=== PATIENT | female | born 1950 | race Caucasian/White ===

== ENCOUNTER 2016-06-05 17:17 | Emergency (ER) | payer MEDICARE, BC ==
[2016-06-05 17:28] VITALS: BP 158/92
[2016-06-05] MEDS ORDERED: LORazepam 2 MG/ML MDV IVPUSH ONE ×2 (17:59→19:14)
[2016-06-05] MEDS ORDERED: Sodium Chloride 0.9% 10 ML Syringe FLUSH PRN (17:59)
[2016-06-05] MEDS ORDERED: Ondansetron 4 MG/2 ML SDV IVPUSH ONE (17:59)
[2016-06-05] MEDS ORDERED: Sodium Chloride 0.9% 1,000 ML IV ONE (18:00)
--- NOTE | 2016-06-05 18:03 | EDM.PDOC ---
ED HPI GENERAL MEDICAL PROBLEM - General Chief Complaint: Gastrointestinal Problem Stated Complaint: PUKING, DIARRHEA Time Seen by Provider: 06/05/16 17:49 Source of Information: Reports: Patient History Limitations: Reports: No limitations - History of Present Illness INITIAL COMMENTS - FREE TEXT/NARRATIVE: Patient is a 65-year-old female presents to the ED complaining of flulike symptoms since Friday night. Patient states she awoke with vomiting and diarrhea. States the vomiting has subsided. She remains nauseated. She can't eat/drink or keep her pills down. She has not taken her medications since onset. States she's had multiple episodes of diarrhea throughout the course of the day. Denies any abdominal pain associated with this. Nor is any blood present. She is chilled with no documented fever or body aches. She denies any chest pain, shortness breath, dysuria, recent antibiotic use, questionable fluid, or out of country travel. Of note she does feel lightheaded and dizzy with ambulation. States she has not had other oral and take of fluids. Patient appears to be quite anxious. She has a history of anxiety and depression as well panic attacks. This was brought on by the of her approximately one year ago. Additional history includes acid reflux, asthma, hypertension - Related Data Allergies Allergy/AdvReac Type Severity Reaction Status Date / Time latex Allergy Itching Verified 02/14/14 09:14 Penicillins Allergy Paralysis Verified 02/14/14 09:14 Home Meds: Home Meds ALPRAZolam [Alprazolam] 0.25 mg PO DAILY PRN 06/05/16 [History] Diltiazem [Cardizem] 120 mg PO Q12HR 06/05/16 [History] Fexofenadine/Pseudoephedrine [Nancy-D 24 Hour Tablet] 1 tab PO DAILY 06/05/16 [History] Fluticasone/Salmeterol [Advair Hfa 230-21 Mcg Inhaler] 2 puff IH BID 06/05/16 [ History] Montelukast [Singulair] 10 mg PO BEDTIME 06/05/16 [History] Naproxen Sodium [Aleve] 220 mg PO DAILY 06/05/16 [History] Nitrofurantoin Monohyd/M-Cryst [Macrobid 100 mg Capsule] 100 mg PO BID #10 capsule 06/05/16 [Rx] Pantoprazole [ProTONIX] 40 mg PO ACBREAKFAST 06/05/16 [History] QUEtiapine [SEROquel] 25 mg PO BID #14 tablet 06/05/16 [Rx] Sertraline [Zoloft] 50 mg PO ASDIRECTED 06/05/16 [History] Tiotropium [Spiriva HandiHaler] 18 mcg INH DAILY 06/05/16 [History] traZODone HCl [Trazodone HCl] 150 mg PO DAILY 06/05/16 [History] Past Medical History Cardiovascular History: Reports: Arrhythmia Respiratory History: Reports: Asthma [employer]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: Musculoskeletal History: Reports: Back pain, chronic Psychiatric History: Reports: Anxiety, Depression Hematologic History: Reports: Blood transfusion(s) - Past Surgical History GI Surgical History: Reports: Colonoscopy Musculoskeletal Surgical History: Reports: Hip replacement Social & Family History - Family History Family Medical History: Noncontributory - Tobacco Use Smoking Status *Q: Never Smoker - Caffeine Use Caffeine Use: Reports: Coffee - Recreational Drug Use Recreational Drug Use: No ED ROS GENERAL - Review of Systems Review Of Systems: See Below Constitutional: Reports: malaise, decreased appetite. Denies: fever, chills HEENT: Reports: No symptoms Respiratory: Reports: No Symptoms Cardiovascular: Reports: No symptoms GI/Abdominal: Reports: Diarrhea, Decreased appetite, Vomiting. Denies: Abdominal pain, Black stool, Bloody stool, Constipation, Distension, Flatus, Hematemesis, Nausea : Denies: dysuria Musculoskeletal: Reports: no symptoms Neurological: Reports: Dizziness, Weakness Psychiatric: Reports: Anxiety ED EXAM, GENERAL - Physical Exam Exam: See Below Exam Limited By: No limitations General Appearance: alert, WD/WN, no apparent distress, anxious Eye Exam: bilateral eye: PERRL Ears: hearing grossly normal Nose: normal inspection Throat/Mouth: Normal inspection, Normal oropharynx, Normal voice, No airway compromise Neck: normal inspection, supple, non-tender, full range of motion. No: lymphadenopathy (L), lymphadenopathy (R) Respiratory/Chest: no respiratory distress, lungs clear, normal breath sounds Cardiovascular: normal peripheral pulses, regular rate, rhythm, no murmur Peripheral Pulses: 2+: radial (R) GI/Abdominal: normal bowel sounds, soft, non tender, no organomegaly, no distention Back Exam: normal inspection. No: CVA tenderness (L), CVA tenderness (R) Neurological: alert, oriented, CN II-XII intact, normal cognition, no motor/ sensory deficits Psychiatric: normal affect, normal mood Skin Exam: Warm, Dry, Intact, Normal color, No rash Course - Vital Signs Last Recorded V/S: Last Vital Signs Temp 97.2 F 06/05/16 17:23 Pulse 76 06/05/16 17:23 Resp 16 06/05/16 17:23 BP 158/92 H 06/05/16 17:23 Pulse Ox 98 06/05/16 17:23 Orthostatic Blood Pressure [ 131/90 stand] Orthostatic Blood Pressure [ 145/84 Sitting] Orthostatic Blood Pressure [ 134/80 Supine] - Orders/Labs/Meds Orders: Active Orders 24 hr Category Date Time Status Orthostatic Vital Signs [RC] ASDIRECTED Care 06/05/16 18:00 Active Peripheral IV Care [RC] . DIRECTED Care 06/05/16 17:59 Active CULTURE URINE [RM] Stat Lab 06/05/16 21:14 Ordered Nitrofurantoin [place]/Macrocryst [Macrobid] Med 06/05/16 21:14 Once 100 mg PO ONETIME ONE Sodium Chloride 0.9% [Saline Flush] Med 06/05/16 17:59 Active 10 ml FLUSH ASDIRECTED PRN Peripheral IV Insertion Adult [OM.PC] Stat Oth 06/05/16 17:59 Ordered Medication Orders Nitrofurantoin Macrocrystals (Macrobid) 100 mg PO ONETIME ONE Stop: 06/05/16 21:15 Sodium Chloride (Saline Flush) 10 ml FLUSH ASDIRECTED PRN PRN Reason: Keep Vein Open Last Admin: 06/05/16 18:19 Dose: 10 ml Labs: Laboratory Tests 06/05/16 06/05/16 06/05/16 Range/Units 17:50 17:50 20:30 WBC 15.30 H (3.98-10.04) K/mm3 RBC 5.08 (3.98-5.22) M/mm3 Hgb 15.0 (11.2-15.7) gm/L Hct 44.2 (34.1-44.9) % MCV 87.0 (79.4-94.8) fl MCH 29.5 (25.6-32.2) pg MCHC 33.9 (32.2-35.5) g/dl RDW Std Deviation 41.4 (36.4-46.3) fL Plt Count 372 H (182-369) K/mm3 MPV 9.6 (9.4-12.3) fl Neut % (Auto) 82.1 H (34.0-71.1) % Lymph % (Auto) 10.3 L (19.3-51.7) % [place] % (Auto) 7.1 (4.7-12.5) % Eos % (Auto) 0.1 L (0.7-5.8) Baso % (Auto) 0.1 (0.1-1.2) % Neut # (Auto) 12.58 H (1.56-6.13) K/mm3 Lymph # (Auto) 1.57 (1.18-3.74) K/mm3 [place] # (Auto) 1.08 H (0.24-0.36) K/mm3 Eos # (Auto) 0.01 L (0.04-0.36) K/mm3 Baso # (Auto) 0.01 (0.01-0.08) K/mm3 Sodium 133 L (136-145) mEq/L Potassium 4.0 (3.5-5.1) mEq/L Chloride 94 L (98-107) mEq/L Carbon Dioxide 17 L (21-32) mEq/L Anion Gap 26.0 H (5-15) BUN 14 (7-18) mg/dL Creatinine 0.9 (0.55-1.02) mg/dL Est Cr Clr Drug Dosing 55.25 mL/min Estimated GFR (MDRD) > 60 (>60) mL/min BUN/Creatinine Ratio 15.6 (14-18) Glucose 90 (80-115) mg/dL Calcium 8.6 (8.5-10.1) mg/dL Total Bilirubin 1.0 (0.2-1.0) mg/dL AST 24 (15-37) U/L ALT 23 (14-59) U/L Alkaline Phosphatase 101 (46-116) U/L C-Reactive Protein < 0.2 (<1.0) mg/dL Total Protein 7.4 (6.4-8.2) g/dl Albumin 4.2 (3.4-5.0) g/dl Globulin 3.2 gm/dL Albumin/Globulin Ratio 1.3 (1-2) TSH 3rd Generation 1.981 (0.358-3.74) uIU/mL Urine Color Yellow (Yellow) Urine Appearance Slt cloudy H (Clear) Urine pH 5.0 (5.0-8.0) Ur Specific [place] <=1.005 (1.005-1.030) Urine Protein Negative (Negative) Urine Glucose (UA) Negative (Negative) Urine Ketones 3+ H (Negative) Urine Occult Blood 1+ H (Negative) Urine Nitrite Negative (Negative) Urine Bilirubin Negative (Negative) Urine Urobilinogen 0.2 (0.2-1.0) Ur Leukocyte Esterase 3+ H (Negative) Urine RBC 5-10 H (0-5) /hpf Urine WBC 50-75 H (0-5) /hpf Urine WBC Clumps Few (NOT SEEN) /hpf Ur Epithelial Cells Not Reportable Ur Squamous Epith Cells 20-30 H (0-5) /hpf Urine Bacteria Few (FEW) /hpf Urine Mucus Not seen (FEW) /hpf Meds: Medications Generic Name Dose Route Start Last Admin Trade Name Freq PRN Reason Stop Dose Admin Nitrofurantoin Macrocrystals 100 mg 06/05/16 21:14 Macrobid PO 06/05/16 21:15 ONETIME ONE Sodium Chloride 10 ml 06/05/16 17:59 06/05/16 18:19 Saline Flush FLUSH 10 ml ASDIRECTED PRN Administration Keep Vein Open Discontinued Medications Generic Name Dose Route Start Last Admin Trade Name Freq PRN Reason Stop Dose Admin Sodium Chloride 1,000 mls @ 999 mls/hr 06/05/16 18:00 06/05/16 18:17 Normal Saline IV 06/05/16 19:00 999 mls/hr ONETIME ONE Administration Lorazepam 1 mg 06/05/16 17:59 06/05/16 18:18 Ativan IVPUSH 06/05/16 18:00 1 mg ONETIME ONE Administration Lorazepam 1 mg 06/05/16 19:14 06/05/16 19:31 Ativan IVPUSH 06/05/16 19:15 1 mg ONETIME ONE Administration Ondansetron HCl 4 mg 06/05/16 17:59 06/05/16 18:18 Zofran IVPUSH 06/05/16 18:00 4 mg ONETIME ONE Administration Quetiapine Fumarate 25 mg 06/05/16 21:11 Seroquel PO 06/05/16 21:12 ONETIME ONE - Re-Assessments/Exams Free Text/Narrative Re-Assessment/Exam: Ordered peripheral IV with NS 999 mls/hr, zofran 4mg IVP, ativan 1mg IVP. Ordered CBC, C14, CRP, UA with micro. Orthostatic vitals will be obtained. 06/05/16 18:01 Labs reviewed: Pupils count 15.30, platelets 372, neutrophil percentage 82, neutrophil #12.5, sodium 133, potassium 4.0, CO2 17, AG 26. Patient appears to be anxious although it has improved since receiving the ativan 1mg prior.Ordered additional 1 mg ativan. She has been up to the bathroom with no dizziness. Patient states she feels much better. Patient states she's been under a lot more stress recently. States one year ago her . Since then has been some financial concerns. 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 So this is just overwhelming for her. States she is on Lexapro prior to Zoloft with better control of anxiety symptoms. States she is thirsty. Will get some water and see how she tolerates this. In addition patient had one bowel movement with admission to the ED. She's had no further while here. Patient states some of her symptoms are more associated with anxiety than infectious. 06/05/16 20:18 Awaiting for UA results. 06/05/16 21:14 UA positive for infection possible contamination. Urine culture obtained. Ordered Macrobid 100 mg by mouth. In addition ordered seroquel 25 mg by mouth for anxiety. Will discharge patient with instructions as documented. Departure - Departure Time of Disposition: 21:15 Disposition: Home, Self-Care 01 Condition: good Clinical Impression: Anxiety Diarrhea Qualifiers: Diarrhea type: unspecified type Qualified Code(s): R19.7 - Diarrhea, unspecified UTI (urinary tract infection) Qualifiers: Urinary tract infection type: site unspecified Hematuria presence: with hematuria Qualified Code(s): N39.0 - Urinary tract infection, site not specified ; R31.9 - Hematuria, unspecified Prescriptions: Nitrofurantoin Monohyd/M-Cryst [Macrobid 100 mg Capsule] 100 mg PO BID #10 capsule QUEtiapine [SEROquel] 25 mg PO BID #14 tablet Instructions: Dehydration, Adult, [id number], Diarrhea, Adult, [id number] Referrals: Sandi Pineda, [employer] TECHNICIAN [Primary Care Provider] - Khari Grider MD [Physician] - Meghann Pressley NP [Nurse Practitioner] - Forms: ED Department Discharge Additional Instructions: Take the macrobid as prescribed for UTI. In addition I believe diarrhea is stressed induced. Thus will start you on seroquel 25mg twice a day. Continue taking all your home medications as prescribed. Will have you followup with PCP in the next 5 days to ensure resolution of UTI and reevaluate depression/ anxiety medications. In addition call and make an appointment with Kassy Pressley for further psychiatric evaluation. Continue to eat three well portioned meals with adequate water intake. Return to the E.D. for any new or worsening symptoms. - My Orders Last 24 Hours: My Active Orders 06/05/16 17:59 Peripheral IV Care [RC] . DIRECTED Sodium Chloride 0.9% [Saline Flush] 10 ml FLUSH ASDIRECTED PRN Peripheral IV Insertion Adult [OM.PC] Stat 06/05/16 18:00 Orthostatic Vital Signs [RC] ASDIRECTED 06/05/16 21:14 CULTURE URINE [RM] Stat Nitrofurantoin [place]/Macrocryst [Macrobid] 100 mg PO ONETIME ONE - Assessment/Plan Last 24 Hours: My Active Orders 06/05/16 17:59 Peripheral IV Care [RC] . DIRECTED Sodium Chloride 0.9% [Saline Flush] 10 ml FLUSH ASDIRECTED PRN Peripheral IV Insertion Adult [OM.PC] Stat 06/05/16 18:00 Orthostatic Vital Signs [RC] ASDIRECTED 06/05/16 21:14 CULTURE URINE [RM] Stat Nitrofurantoin [place]/Macrocryst [Macrobid] 100 mg PO ONETIME ONE
[2016-06-05] MEDS ORDERED: QUEtiapine 25 MG Tab PO ONE (21:11)
[2016-06-05] MEDS ORDERED: Nitrofurantoin Monohydrate/Macrocrystalline 100 MG Cap PO ONE (21:14)
== END 2016-06-05 21:24 | disposition home or self-care (01) ==
LOC: JD.ED 17:17
DX: R19.7 Diarrhea, unspecified (principal); N39.0 Urinary tract infection, site not specified; F41.9 Anxiety disorder, unspecified; J45.909 Unspecified asthma, uncomplicated; F32.9 Major depressive disorder, single episode, unspecified; G89.29 Other chronic pain; M54.9 Dorsalgia, unspecified; Z96.649 Presence of unspecified artificial hip joint; Z79.899 Other long term (current) drug therapy; Z88.0 Allergy status to penicillin; Z91.040 Latex allergy status
CPT/HCPCS: 36415; 80053; 81001; 84443; 85025; 86140; 87086; 96361; 96374; 96375; 96376; 99284; A9270; J2060; J2405; J7040; J7050